=== PATIENT | female | born 1955 | race American Indian/Alaskan Native ===

== ENCOUNTER 2018-12-06 08:36 | Outpatient (CLI) | payer MEDICARE ==
--- NOTE | 2018-12-06 09:49 | XRay Report ---
BILATERAL KNEES STANDING, AP VIEW History: Bilateral primary osteoarthritis of the knee. Findings: No comparison. Normal bone mineralization. Moderate to severe osteoarthritic changes are identified in both knees. The left knee appears slightly more affected. The medial compartments are also most affected in both knees. There is no evidence for fracture or bone lesion. The soft tissues are unremarkable. Impression: Moderate to severe osteoarthritis, left greater than right.
== END 2018-12-06 08:37 | disposition home or self-care (01) ==
LOC: XRAY 08:36
PROVIDERS: ATTEND Orthopaedic Surgery
DX: M17.0 Bilateral primary osteoarthritis of knee (principal); I10 Essential (primary) hypertension
CPT/HCPCS: 73565